=== PATIENT | female | born 1970 | race Caucasian/White ===

== ENCOUNTER 2024-09-24 02:48 | Outpatient (CLI) | payer MEDICARE, MEDICAID, SELFPAY ==
--- NOTE | 2024-09-24 13:03 | DI.RAD_ITS ---
Exam(s) XR FOOT RT COMPLETE EXAM: XR FOOT RT COMPLETE CLINICAL HISTORY: Right foot pain,m79.671. TECHNIQUE: 2D digital imaging was performed. COMPARISON: No exams were available for comparison FINDINGS: No evidence of fracture or diastasis of the Lisfranc joint. Hammertoe deformity of the 3rd toe noted . MTP joints appear unremarkable. No pes planus evident. Bone density normal. No osseous lesions. No radiopaque foreign bodies. IMPRESSION: As above. DATA REPOSITORY: RADIATION DOSE DELIVERED:
--- NOTE | 2024-09-24 13:04 | DI.RAD_ITS ---
Exam(s) XR FOOT LT COMPLETE EXAM: XR FOOT LT COMPLETE CLINICAL HISTORY: Left foot pain,m79.672. TECHNIQUE: 2D digital imaging was performed. COMPARISON: CR XR FOOT RT COMPLETE from 09/24/2024 FINDINGS: 3 views No evidence of acute fracture or diastasis of the Lisfranc joint. Hammertoe deformities of the 3rd a nd 5th toes are noted. No pes planus. There is dorsal soft tissue swelling but no metatarsal fractu res. The 3rd metatarsal is foreshortened. Bone density normal. No osseous lesions nor erosions. No radiopaque foreign bodies. IMPRESSION: As above. DATA REPOSITORY: RADIATION DOSE DELIVERED:
== END 2024-09-24 03:08 ==
LOC: DI 02:48
PROVIDERS: PCP Registered Nurse; Visit Provider Podiatrist
DX: M79.671 Pain in right foot (principal); M79.672 Pain in left foot; M20.42 Other hammer toe(s) (acquired), left foot; M20.41 Other hammer toe(s) (acquired), right foot
CPT/HCPCS: 99203; 73630